=== PATIENT | male | born 1960 | race Caucasian/White ===

== ENCOUNTER 2017-04-05 14:58 | Observation (INO) | payer OTHER ==
[~2017-04-05] VITALS: Ht 175.3 cm; Wt 154.0 kg
[~2017-04-05 14:58] MED LIST: ASPIRIN81 M1 PO; ATENOLOL50 M1 PO; ATENOLOL50 MG PO; CIPRO500 MG PO; DIOVAN320 MG PO; EFFEXOR XR37.5 MG PO; EFFIENT10 MG PO; LO-DOSE ASPIRIN81 M1 PO; NITROSTAT0.4 MG SL; PANTOPRAZOLE SO40 MG PO; PAXIL30 MG PO; PLAVIX75 MG PO; PROTONIX40 MG PO; SIMVASTATIN40 MG PO; TOPAMAX25 MG PO; TOPIRAMATE25 MG PO; ULTRAM50 MG PO; VENLAFAXINE H37.5 MG PO; WELLBUTRIN XL300 MG PO; ZOCOR80 MG PO
[2017-04-05 15:59] LABS: HEMATOCRIT 42.9 % (38.0-50.0); MCH 28.6 PG (29.0-34.0); MCHC 32.6 G/DL (30.0-36.0); MCV 87.6 FL (86-99); MEAN PLAT.VOLUME 9.8 uM^3 (9.0-12.4); PLATELET COUNT 266 K/uL (156-360); RBC DIS.WIDTH-CV 14.8 % (11.8-14.6); RBC DIS.WIDTH-SD 47.7 % (39-53); WHITE BLOOD COUNT 10.1 K/uL (4.1-10.2)
[2017-04-05 16:10] LABS: CHLORIDE 114 mEq/L (99-109); POTASSIUM 3.9 mEq/L (3.7-5.4); SODIUM 142 mEq/L (136-147)
[2017-04-05 16:12] LABS: GLUCOSE 129 mg/dL (70-99)
[2017-04-05 16:13] LABS: ANION GAP 9 MEQ/L (2-14)
[2017-04-05 16:14] LABS: TOTAL BILIRUBIN 0.8 mg/dL (0.0-1.0)
[2017-04-05 16:16] LABS: ALKALINE PHOSPHATASE 73 IU/L (3-129); GFR ESTIMATE (CALCULATED) > 59 mL/min/
[2017-04-05 16:17] LABS: UREA NITROGEN (BUN) 19 mg/dL (9-23)
[2017-04-05 16:23] LABS: D-DIMER ELISA 1.08 mg/L FEU (< 0.57); INTER. NORMALIZED RATIO 1.2; PROTHROMBIN TIME 12.1 (9.2-11.2); TROP-I INTERPRETATION NEGATIVE; TROPONIN-I < 0.01 ng/mL (0.0-0.30)
[2017-04-05] MEDS ORDERED: ALPRAZOLAM0.25 M2 PO (18:47)
[2017-04-05] MEDS ORDERED: TOPAMAX100 MG PO (18:47)
[2017-04-05] MEDS ORDERED: EFFEXOR XR150 MG PO (18:47)
[2017-04-05] MEDS ORDERED: AMBIEN10 MG PO (18:48)
[2017-04-05 21:43] VITALS: BP 106/66
[2017-04-06] VITALS: BP 97/54
[2017-04-06 02:43] LABS: TROP-I INTERPRETATION NEGATIVE; TROPONIN-I < 0.01 ng/mL (0.0-0.30)
[2017-04-06 05:00] VITALS: BP 123/73
[2017-04-06 08:27] VITALS: BP 122/68
[2017-04-06 08:31] LABS: HDL CHOLESTEROL 23 MG/DL (Desirable>=40); LDL CHOLESTEROL 79 mg/dL (Desirable<100); NON-HDL CHOLESTEROL 99 mg/dL (Desirable<160); TOTAL CHOLESTEROL 122 mg/dL (Desirable<200); TRIGLYCERIDES 100 MG/DL (Normal: <150)
[2017-04-06 08:36] LABS: TROP-I INTERPRETATION NEGATIVE; TROPONIN-I < 0.01 ng/mL (0.0-0.30)
[2017-04-06 11:49] VITALS: BP 134/76
[2017-04-06] MEDS ORDERED: ATORVASTATIN CA20 MG PO (12:42)
== END 2017-04-06 14:03 | disposition home or self-care (01) ==
LOC: EME 14:58 → EDOF 20:23 → 5WEST 20:23 → EDOF 20:23 → 5WEST 21:32
PROVIDERS: Emergency Medicine; Physician Assistant Medical
DX: R07.89 Other chest pain (principal); I47.1 Supraventricular tachycardia; Z91.19 Patient's noncompliance with other medical treatment and regimen; I25.10 Atherosclerotic heart disease of native coronary artery without angina pectoris; I25.2 Old myocardial infarction; Z95.5 Presence of coronary angioplasty implant and graft; E66.01 Morbid (severe) obesity due to excess calories; Z68.43 Body mass index [BMI] 50.0-59.9, adult; G47.33 Obstructive sleep apnea (adult) (pediatric); I10 Essential (primary) hypertension; E78.5 Hyperlipidemia, unspecified; F17.220 Nicotine dependence, chewing tobacco, uncomplicated; F31.9 Bipolar disorder, unspecified; G89.29 Other chronic pain; R91.8 Other nonspecific abnormal finding of lung field
CPT/HCPCS: 71010; 71275; 80053; 80061; 84484; 85027; 85379; 85610; 93005; 94660; 99281; 99285; G0378; J1650; J3480; J7030; S0028

== ENCOUNTER 2017-05-09 22:18 | Observation (INO) | payer OTHER ==
[~2017-05-09] VITALS: Ht 175.3 cm; Wt 154.0 kg
[~2017-05-09 22:18] MED LIST changes: +ALPRAZOLAM0.25 M2 PO; +AMBIEN10 MG PO; +ATORVASTATIN CA20 MG PO; +EFFEXOR XR150 MG PO; +TOPAMAX100 MG PO
[2017-05-09 23:11] LABS: HEMATOCRIT 40.1 % (38.0-50.0); MCH 28.9 PG (29.0-34.0); MCHC 32.9 G/DL (30.0-36.0); MCV 87.7 FL (86-99); MEAN PLAT.VOLUME 10.3 uM^3 (9.0-12.4); PLATELET COUNT 229 K/uL (156-360); RBC DIS.WIDTH-CV 15.2 % (11.8-14.6); RBC DIS.WIDTH-SD 48.6 % (39-53); RED BLOOD COUNT 4.57 M/uL (4.00-5.50); WHITE BLOOD COUNT 9.2 K/uL (4.1-10.2)
[2017-05-09 23:23] LABS: CHLORIDE 112 mEq/L (99-109); D-DIMER ELISA 0.62 mg/L FEU (< 0.57); INTER. NORMALIZED RATIO 1.1; POTASSIUM 3.6 mEq/L (3.7-5.4); PROTHROMBIN TIME 11.6 (9.2-11.2); PTT 27.3 (25-32); SODIUM 142 mEq/L (136-147)
[2017-05-09 23:25] LABS: GLUCOSE 103 mg/dL (70-99)
[2017-05-09 23:27] LABS: ANION GAP 11 MEQ/L (2-14); TOTAL BILIRUBIN 0.6 mg/dL (0.0-1.0)
[2017-05-09 23:29] LABS: ALKALINE PHOSPHATASE 70 IU/L (3-129); GFR ESTIMATE (CALCULATED) > 59 mL/min/
[2017-05-09 23:30] LABS: UREA NITROGEN (BUN) 21 mg/dL (9-23)
[2017-05-09 23:32] LABS: LIPASE 29 U/L (1.0-51.0); TROP-I INTERPRETATION NEGATIVE; TROPONIN-I < 0.01 ng/mL (0.0-0.30)
[2017-05-09] MEDS ORDERED: DESYREL100 MG PO (23:54)
[2017-05-10 01:00] VITALS: BP 130/74
[2017-05-10 04:13] VITALS: BP 120/56
[2017-05-10 07:16] LABS: TROP-I INTERPRETATION NEGATIVE; TROPONIN-I < 0.01 ng/mL (0.0-0.30)
[2017-05-10 07:18] LABS: HDL CHOLESTEROL 24 MG/DL (Desirable>=40); LDL CHOLESTEROL 113 mg/dL (Desirable<100); NON-HDL CHOLESTEROL 138 mg/dL (Desirable<160); TOTAL CHOLESTEROL 162 mg/dL (Desirable<200); TRIGLYCERIDES 124 MG/DL (Normal: <150)
[2017-05-10] MEDS ORDERED: ATORVASTATIN CA40 MG PO (10:16)
[2017-05-10 11:48] VITALS: BP 107/56
[2017-05-10 13:28] LABS: TROP-I INTERPRETATION NEGATIVE; TROPONIN-I < 0.01 ng/mL (0.0-0.30)
== END 2017-05-10 13:40 | disposition home or self-care (01) ==
LOC: EME → EDBD 22:18 → EME 22:18 → 5WEST 23:49 → EDOF 23:49 → 5WEST 05-10 00:49
PROVIDERS: Emergency Medicine; Physician Assistant Medical
DX: R07.89 Other chest pain (principal); E78.5 Hyperlipidemia, unspecified; I10 Essential (primary) hypertension; G43.909 Migraine, unspecified, not intractable, without status migrainosus; I25.2 Old myocardial infarction; F31.9 Bipolar disorder, unspecified; I25.10 Atherosclerotic heart disease of native coronary artery without angina pectoris; G47.33 Obstructive sleep apnea (adult) (pediatric); E66.01 Morbid (severe) obesity due to excess calories; Z68.43 Body mass index [BMI] 50.0-59.9, adult; F17.220 Nicotine dependence, chewing tobacco, uncomplicated; Z95.5 Presence of coronary angioplasty implant and graft; I47.1 Supraventricular tachycardia; G89.29 Other chronic pain; F40.01 Agoraphobia with panic disorder; K21.9 Gastro-esophageal reflux disease without esophagitis; K76.0 Fatty (change of) liver, not elsewhere classified
CPT/HCPCS: 71020; 76705; 80053; 80061; 83690; 83880; 84484; 85027; 85379; 85610; 85730; 93005; 99281; 99284; G0378; J1650; J2270; J7030